=== PATIENT | female | born 1990 | race African-American/Black ===

== ENCOUNTER 2021-03-18 14:28 | Emergency (ER) | payer OTHER ==
[~2021-03-18] VITALS: Ht 175.3 cm; Wt 84.6 kg
[2021-03-18 14:29] VITALS: BP 121/66
[2021-03-18 15:08] LABS: BASO # 0.1 10^3/uL (0.0-0.2); BASO % 0.4 % (0.0-1.0); EOS # 0.1 10^3/uL (0.0-0.5); EOS % 0.5 % (0.0-3.0); HEMATOCRIT 39.5 % (36.0-47.0); HEMOGLOBIN 13.7 g/dl (12.0-15.5); LYMPH # 2.7 10^3/uL (1.5-5.0); LYMPH % 18.1 % (24.0-44.0); MEAN CORPUSCULAR HEMOGLOBIN 29.5 pg (27.0-33.0); MEAN CORPUSCULAR HGB CONC 34.7 g/dl (32.0-36.5); MEAN CORPUSCULAR VOLUME 84.9 fl (80.0-96.0); MONO # 0.9 10^3/uL (0.0-0.8); NEUTROPHILS % 74.3 % (36.0-66.0); PLATELET COUNT, AUTOMATED 282 10^3/uL (150-450); RED BLOOD COUNT 4.65 10^6/uL (4.00-5.40); WHITE BLOOD COUNT 14.8 10^3/uL (4.0-10.0)
[2021-03-18 16:00] LABS: BLOOD UREA NITROGEN 7 MG/DL (7-18); CALCIUM LEVEL 9.2 MG/DL (8.5-10.1); CARBON DIOXIDE LEVEL 26 MEQ/L (21-32); CHLORIDE LEVEL 105 MEQ/L (98-107); CREATININE FOR GFR 0.69 MG/DL (0.55-1.30); GLOMERULAR FILTRATION RATE > 60.0 (>60); GLUCOSE, FASTING 79 MG/DL (70-100); HCG, SERUM QUANTITATIVE 93104 MIU/ML; POTASSIUM SERUM 3.7 MEQ/L (3.5-5.1); SODIUM LEVEL 137 MEQ/L (136-145)
--- NOTE | 2021-03-18 17:20 | REP ---
INDICATION: early preg, bright red bleeding today. COMPARISON: None. TECHNIQUE: Transabdominal obstetric sonography. FINDINGS: Scanning through the gravid uterus demonstrates a single living intrauterine gestation. [place]-rump length of the embryonic pole is 17 mm. This corresponds with an 8 week 1 day gestational age estimate. heart rate is recorded at 176 beats per minute. There is a thin sliver of complex fluid surrounding the anterior portion of the gestational sac consistent with a small subchorionic hemorrhage. There is a 3.7 x 2.8 x 3.5 cm right ovarian cystic area consistent with corpus luteum. There is a hypoechoic solid area in the myometrium measuring 1.4 cm in greatest diameter consistent with a small uterine fibroid. IMPRESSION: Viable single intrauterine gestation at 8 weeks 1 day by crown-rump length. DEIDRA by sonography 27 October 2021. There is a small anterior sub chorionic fluid collection consistent with subchorionic hemorrhage. A small myometrial fibroid is seen. There is a 3.7 cm corpus luteum cyst in the right ovary. <Electronically signed by Donnie Covington > 03/18/21 0066
[2021-03-18] MEDS ORDERED: REGL10TA6 PO (17:33)
== END 2021-03-18 17:46 | disposition home or self-care (01) ==
LOC: M ED 14:28
DX: O20.8 Other hemorrhage in early pregnancy (principal); O34.81 Maternal care for other abnormalities of pelvic organs, first trimester; Z3A.08 8 weeks gestation of pregnancy; Z88.6 Allergy status to analgesic agent

== ENCOUNTER 2021-07-09 20:52 | Outpatient (CLI) | payer OTHER ==
[~2021-07-09] VITALS: Ht 175.3 cm; Wt 90.3 kg
[~2021-07-09 20:52] MED LIST: REGL10TA6 PO
[2021-07-09 21:23] VITALS: BP 133/70
[2021-07-09] MEDS ORDERED: COLA100C5 PO (21:32)
[2021-07-09 22:27] VITALS: BP 129/69
--- NOTE | 2021-07-09 23:13 | IPNPDOC ---
Text Note Date of Service The patient was seen on 07/09/21. NOTE PM Triage visit; history obtained from patient as limited AHLTA access. SGT Riri Andrea is a 30yo at 23 weeks presenting for cramping sharp pelvic pain. This began about 3 weeks ago and has progressively worsened. The pain is bilateral lower abdomen radiating downward. The pain is worsened with movement. She has tried occasional Tylenol for relief which has not worked. Otherwise she feels relatively well and denies vaginal bleeding, loss of fluid, regular contractions. Endorses positive movement. She denies any complications with this . Previous was a term vaginal delivery. MedHx: denies SurgHx: right foot surgery, laparoscopic ovarian de-torsion in 2017 Meds: PNV, colace, reglan, fioricet, B12 Allergies: zofran, NSAIDs - both cause facial swelling VItals reviewed and within normal limits. 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 No signs of active labor, closed cervix on exam. No signs of infection or nefarious abdominal processes. Discussed round ligament pain with patient and mitigation strategies including acetaminophen 975mg every 6 hours by mouth; support belt. 48 hours quarters given. I would expect this condition to improve with time as the ligaments become used to the stretch. She indicated understanding. We reviewed reasons to return to labor and delivery including vaginal bleeding, loss of fluid, regular contractions and decreased movement. León Fernandez DO VS,Nidhi, I+O VS, Nidhi, I+O Vital Signs Date Time Temp Pulse Resp B/P (MAP) Pulse Ox O2 Delivery O2 Flow Rate FiO2 07/09/21 22:27 98.0 74 16 129/69 (89) LEÓN FERNANDEZ DO Jul 09, 2021 23:13
== END 2021-07-09 22:50 | disposition home or self-care (01) ==
LOC: M LDO 20:52
PROVIDERS: ATTEND Obstetrics & Gynecology
DX: O26.892 Other specified pregnancy related conditions, second trimester (principal); R10.2 Pelvic and perineal pain; Z3A.23 23 weeks gestation of pregnancy; Z79.899 Other long term (current) drug therapy; Z88.8 Allergy status to other drugs, medicaments and biological substances
CPT/HCPCS: 59025; G0378; G0463

== ENCOUNTER → 2021-07-31 | Outpatient (CLI) | payer OTHER ==
[~2021-07-31] MED LIST changes: +COLA100C5 PO
--- NOTE | 2021-08-01 06:55 | REP ---
INDICATION: MEASURING LARGE FOR DATES COMPARISON: None. TECHNIQUE: Transabdominal obstetrical ultrasound with color Doppler evaluation. FINDINGS: Examination demonstrates a single live intrauterine in cephalic presentation. motion is identified by technologist. Placenta is noted posterior/fundal and grade 1 without evidence for placenta previa or abruption. Amniotic fluid volume is normal. Cervix measures 4.7 cm in length and appears closed. Two right uterine myomas are identified measuring 1.9 cm and 2.0 cm.. Selected gestational age: 27 weeks 3 days with DEIDRA 10/27/2021. Gestational age by current measurements 28 weeks 5 days with DEIDRA 10/18/2021. FHR equals 145 beats per minute. BPD: 7.2 cm at 29 weeks 0 days HC: 26.7 cm at 29 weeks 1 day AC: 23.1 cm at 27 weeks 3 days FL: 5.4 cm at 28 weeks 5 days HL: 5.0 cm at 29 weeks 1 day HC/AC: 1.16 Estimated weight 1185 grams (61stpercentile). RUPERT: 15.0 cm Umbilical artery SD ratio: 3.00 Anatomical assessment demonstrates normal structures including cranium, cavum, cerebellum/posterior fossa, facial features, lungs, four-chamber heart, diaphragm, stomach, cord insertion/three-vessel cord, kidneys/bladder, spine, and extremities. IMPRESSION: 1. Single live intrauterine in cephalic presentation demonstrating appropriate interval growth. 2. Limited anatomical assessment without obvious abnormality. 3. Myomatous changes to the uterus. <Electronically signed by Leno Coats > 08/01/21 0651
== END ==
LOC: M RAD 14:34
PROVIDERS: ATTEND Nurse Practitioner Women's Health
DX: Z36.2 Encounter for other antenatal screening follow-up (principal); Z3A.29 29 weeks gestation of pregnancy; D25.9 Leiomyoma of uterus, unspecified; O34.13 Maternal care for benign tumor of corpus uteri, third trimester

== ENCOUNTER 2021-09-17 14:17 | Outpatient (CLI) | payer OTHER ==
[~2021-09-17] VITALS: Ht 175.3 cm; Wt 96.7 kg
[2021-09-17 14:39] VITALS: BP 121/63
[2021-09-17] MEDS ORDERED: PRENTAB9 PO (14:40)
--- NOTE | 2021-09-17 16:06 | IPNPDOC ---
Text Note Date of Service The patient was seen on 09/17/21. NOTE 09/17/2021 PATIENT IS 30 Y.O. LMP 01/25/21 EDC BY EARLY US 8.6 WEEKS EDC 11/01/21 COMPLAINS OF ABDOMINAL PAIN AT WORK . NO VAGINAL LOSS NO BLEEDING . RISK FACTORS FIBROID UTERUS WORK STRESS SICKLE CELL TRAIT ASSESSMENT DOES NOT APPEAR IN DISTRESS SF HEIGHT 32 CM VERTEX BOWEL SOUNDS NORMAL NON TENDER UTERUS CATEGORY 1 STRIP . REVIEWED WITH PATIENT INCREASE MOVEMENT WILL GIVE HER ABDOMINAL PAIN . REVIEWED WHAT SHE DOES AT WORK. HER UNIT DEPLOYED SHE SITS AT WORK WITH NO WORK . DOES NOT NEED PROFILE CHANGE. US CONSENTED VERTEX LIMB MOVEMENT NOTED SPONTANEOUS BREATHING RUPERT MVP 7.17 CM . DISCHARGED UNDELIVERED PLAN MAINTAIN CENTERING APPOINTMENT VSNdihi, I+O VSNidhi I+O Vital Signs Date Time Temp Pulse Resp B/P (MAP) Pulse Ox O2 Delivery O2 Flow Rate FiO2 09/17/21 14:39 98.6 104 18 121/63 (82) 99 Room Air Raymon Alba MD Sep 17, 2021 16:06
== END 2021-09-17 15:45 | disposition home or self-care (01) ==
LOC: M LDO 14:17
PROVIDERS: ATTEND Obstetrics & Gynecology
DX: O26.893 Other specified pregnancy related conditions, third trimester (principal); R10.84 Generalized abdominal pain; Z3A.00 Weeks of gestation of pregnancy not specified
CPT/HCPCS: 59025; 76815; G0378; G0463

== ENCOUNTER 2021-09-20 10:24 | Emergency (ER) | payer OTHER ==
[~2021-09-20] VITALS: Ht 175.3 cm; Wt 96.9 kg
[~2021-09-20 10:24] MED LIST changes: +PRENTAB9 PO
--- OUTSIDE RECORDS SUMMARY | 2021-09-20 10:30 | CCD ---
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 Name Role Phone Conor Suarez MD Unavailable Unavailable Conor Suarez MD Unavailable Unavailable Conor Suarez MD Unavailable Unavailable Conor Suarez MD Unavailable Unavailable Conor Suarez MD Unavailable Unavailable Conor Suarez MD Unavailable Unavailable Conor Suarez MD Unavailable Unavailable Conor Suarez MD Unavailable Unavailable Conor Suarez MD Unavailable Unavailable Conor Suarez MD Unavailable Unavailable Conor Suarez MD Unavailable Unavailable Conor Suarez MD Unavailable Unavailable Conor Suarez MD Unavailable Unavailable Conor Suarez MD Unavailable Unavailable Conor Suarez MD Unavailable Unavailable Conor Suarez MD Unavailable Unavailable Conor Suarez MD Unavailable Unavailable Conor Suarez MD Unavailable Unavailable Conor Suarez MD Unavailable Unavailable Conor Suarez MD Unavailable Unavailable Conor Suarez MD Unavailable Unavailable Conor Suarez MD Unavailable Unavailable Conor Suarez MD Unavailable Unavailable Conor Suarez MD Unavailable Unavailable Conor Suarez MD Unavailable Unavailable Conor Suarez MD Unavailable Unavailable Conor Suarez MD Unavailable Unavailable Conor Suarez MD Unavailable Unavailable Conor Suarez MD Unavailable Unavailable Conor Suarez MD Unavailable Unavailable Conor Suarez MD Unavailable Unavailable Conor Suarez MD Unavailable Unavailable Conor Suarez MD Unavailable Unavailable Conor Suarez MD Unavailable Unavailable Conor Suarez MD Unavailable Unavailable Conor Suarez MD Unavailable Unavailable Conor Suarez MD Unavailable Unavailable Conor Suarez MD Unavailable Unavailable Conor Suarez MD Unavailable Unavailable Conor Suarez MD Unavailable Unavailable Suarez, Conor Morales MD Unavailable Unavailable Suarez, Conor Morales MD Unavailable Unavailable Suarez, Conor Morales MD Unavailable Unavailable Suarez, Conor Morales MD Unavailable Unavailable Suarez, Conor Morales MD Unavailable Unavailable Suarez, Conor Morales MD Unavailable Unavailable Suarez, Conor Morales MD Unavailable Unavailable Suarez, Conor Morales MD Unavailable Unavailable Suarez, Conor Morales MD Unavailable Unavailable Suarez, Conor Morales MD Unavailable Unavailable Suarez, Conor Morales MD Unavailable Unavailable Suarez, Conor Morales MD Unavailable Unavailable Suarez, Conor Morales MD Unavailable Unavailable Suarez, Conor Morales MD Unavailable Unavailable Suarez, Conor Morales MD Unavailable Unavailable Suarez, Conor Morales MD Unavailable Unavailable Suarez, Conor Morales MD Unavailable Unavailable Suarez, Conor Morales MD Unavailable Unavailable Suraez, Conor Morales MD Unavailable Unavailable Suarez, Conor Morales MD Unavailable Unavailable Suarez, Conor Morales MD Unavailable Unavailable Suarez, Conor Morales MD Unavailable Unavailable Suarez, Conor Morales MD Unavailable Unavailable Suarez, Conor Morales MD Unavailable Unavailable Suarez, Conor Morales MD Unavailable Unavailable Suarez, Conor Morales MD Unavailable Unavailable Suarez, Conor Morales MD Unavailable Unavailable Suarez, Conor Morales MD Unavailable Unavailable Suarez, Conor Morales MD Unavailable Unavailable Suarez, Conor Morales MD Unavailable Unavailable Suarez, Conor Morales MD Unavailable Unavailable Suarez, Conor Morales MD Unavailable Unavailable Suarez, Conor Morales MD Unavailable Unavailable Suarez, Conor Morales MD Unavailable Unavailable Suarez, Conor Morales MD Unavailable Unavailable Suarez, Conor Morales MD Unavailable Unavailable Suarez, Conor Morales MD Unavailable Unavailable Suarez, Conor Morales MD Unavailable Unavailable Suarez, Conor Morales MD Unavailable Unavailable Suarez, Conor Morales MD Unavailable Unavailable Suarez, Conor Morales MD Unavailable Unavailable Suarez, Conor Morales MD Unavailable Unavailable Suarez, Conor Morales MD Unavailable Unavailable Suarez, Conor Morales MD Unavailable Unavailable Suarez, Conor Morales MD Unavailable Unavailable Suarez, Conor Morales MD Unavailable Unavailable Suarez, Conor Morales MD Unavailable Unavailable Suarez, Conor Morales MD Unavailable Unavailable Suarez, Conor Morales MD Unavailable Unavailable Suarez, Conor Morales MD Unavailable Unavailable Suarez, Conor Morales MD Unavailable Unavailable Suarez, Conor Morales MD Unavailable Unavailable Suarez, Conor Morales MD Unavailable Unavailable Jc PEARL Unavailable Unavailable MELÉNDEZ, [facility] Unavailable Unavailable Re-disclosure Warning The records that you are about to access may contain information from federally-assisted alcohol or drug abuse programs. If such information is present, then the following federally mandated warning applies: This information has been disclosed to you from records protected by federal confidentiality rules (42 CFR part 2). The federal rules prohibit you from making any further disclosure of this information unless further disclosure is expressly permitted by the written consent of the person to whom it pertains or as otherwise permitted by 42 CFR part 2. A general authorization for the release of medical or other information is NOT sufficient for this purpose. The Federal rules restrict any use of the information to criminally investigate or prosecute any alcohol or drug abuse patient.The records that you are about to access may contain highly sensitive health information, the redisclosure of which is protected by Article 27-F of the [facility] Public Health law. If you continue you may have access to information: Regarding HIV / AIDS; Provided by facilities licensed or operated by the [facility] Office of Mental Health; or Provided by the [facility] Office for People With Developmental Disabilities. If such information is present, then the following [facility] mandated warning applies: This information has been disclosed to you from confidential records which are protected by state law. State law prohibits you from making any further disclosure of this information without the specific written consent of the person to whom it pertains, or as otherwise permitted by law. Any unauthorized further disclosure in violation of state law may result in a fine or mcc sentence or both. A general authorization for the release of medical or other information is NOT sufficient authorization for further disc losure. Allergies and Adverse Reactions Type Description Substance Reaction Status Data Source(s ) No Known Environmental Allergies No Known Environmental Al lergies [facility] No Known Food Allergies No Known Food Allergies [facility] Propensity to adverse reactions ZOFRAN ZOFRAN SWELLING [facility] Propensity to adverse reactions NSAID NSAID SWELLING [facility] Allergy to substance Allergy to substance Allergy to substance [place] ([facility]) Encounters Encounter Providers Location Date Indications Data Source(s ) Outpatient Attender: ABRAM PEARLConsultant: CLINIC AMARILYSI Neftali 01/29/2021 06:15:00 AM EDT - 01/29/2021 12:14:00 PM EDT [facility] Patient discharged. Outpatient Attender: ABRAM PEARL 01/28/20 08:01:40 AM EDT - 01/28/2021 09:56:00 AM T [facility] Patient discharged. Andrew Suarez MD: [address] [place] [address] [phone], Ph. Attender: Andrew Suarez MD [place] - [facility] Medical 11/12/2020 12:00:00 AM EST [place] ([facility]) Medications No Information Insurance Providers Payer name Policy type / Coverage type Policy ID Covered republican ID Covered republican's relationship to schroeder Policy Schroeder Plan Information [facility] ACTIVE DUTY [id number] SP [id number] [facility] HUMANA - O/P [id number] 18 [id number] Problems, Conditions, and Diagnoses Code Display Name Description Problem Type Effective Dates Data Source(s) S04388 Other synovitis and tenosynovitis, right ankle and foot Other synovitis and tenosynovitis, right ankle and foot Diagnosis 01/29/2021 06:15:00 AM EDT [facility] [id number] Loose body in right ankle Loose body in right ankle Di agnosis 01/29/2021 06:15:00 AM EDT [facility] [id number] Other instability, right ankle Other instability, righ t ankle Diagnosis 01/29/2021 06:15:00 AM EDT [facility] [id number] Pain in right ankle and joints of right foot Pain in right ankle and joints of right foot Diagnosis 01/29/2021 06:15:[address] [facility] [id number] Encounter for other preprocedural examin ation Encounter for other preprocedural examination Diagnosis 01/28/2021 09:22:00 AM EDT [facility] Surgeries/Procedures No Information Results ID Date Data Source [id number] 01/29/2021 06:41:00 AM EDT [facility] Name Value Range Interpretation Code Description Data Sho rce(s) Supporting Document(s) HCG URINE QUAL NEGATIVE NORMAL: NEGATIVE [facility] HCG URINE QL REENTER NEGATIVE NORMAL: NEGATIVE [facility] { KIT LOT # [id number] ){ KIT EXP DATE 07.31.22 ){ PROCEDURAL CONTROL VALID ) ID Date Data Source [id number] 11/12/2020 10:22:00 AM EST [facility] ([facility]) Name Value Range Interpretation Code Description Data Sho rce(s) Supporting Document(s) sars-cov-2 negative negative Sars-cov-2 [facility]) ID Date Data Source [id number] 11/12/2020 10:17:00 AM EST [facility] Name Value Range Interpretation Code Description Data Sho rce(s) Supporting Document(s) SARS coronavirus 2 RdRp gene [Presence] in Respiratory specimen by ROLY with probe detection Not detected [facility] This lab was ordered by [facility] and reported by [facility]. Procedure Social History No Information Vital Signs ID Date Data Source [id number] 02/13/2021 12:44:59 PM EDT [facility] Name Value Range Interpretation Code Description Data Source(s) WEIGHT RECORDED 185.00 pounds 185.00 pounds Car [facility] Height 69 Inches 069 Inches [facility]
--- OUTSIDE RECORDS SUMMARY | 2021-09-20 12:16 | CCD ---
Author Author [facility] Organization [facility] Address Unknown Phone Unavailable Care Team Providers Care Fuel Technician Name Role Phone Conor Suarez MD Unavailable [...] MD Unavailable Unavailable Jc PEARL Unavailable Unavailable [facility] Unavailable Unavailable Re-disclosure Warning The records [...] is protected by Article 27-F of the [facility] Public Health law. If you continue you may have access to information: Regarding HIV / AIDS; Provided by facilities licensed or operated by the [facility] Office of Mental Health; or Provided by the [facility] Office for People With Developmental Disabilities. If such information is present, then the following [facility] mandated warning applies: This information has been [...] law may result in a fine or intermediate sentence or both. A general authorization for the release of medical or other information is NOT sufficient authorization for further disc losure. Allergies and Adverse Reactions Type Description Substance Reaction Status Data Source(s ) No Known Environmental Allergies No Known Environmental Al lergies [facility] No Known Food Allergies No Known Food Allergies [facility] Propensity to adverse reactions ZOFRAN ZOFRAN SWELLING [facility] Propensity to adverse reactions NSAID NSAID SWELLING [facility] Allergy to substance Allergy to substance Allergy to substance [place] ([facility]) Encounters Encounter Providers Location Date Indications Data Source(s ) Outpatient Attender: ABRAM PEARLConsultant: CLINIC GUTHRI E 01/29/2021 06:15:00 AM EDT - 01/29/2021 12:14:00 PM EDT [facility] Patient discharged. Outpatient Attender: ABRAM PEARL 01/28/20 08:01:40 AM EDT - 01/28/2021 09:56:00 AM EDT [facility] Patient discharged. Andrew Suarez MD: [address] [place] [address] [phone], Ph. Attender: Andrew Suarez MD [facility] Medical 11/12/2020 12:00:00 AM MATTIE VILLANUEVA ([facility]) Medications No Information Insurance Providers Payer name Policy type / Coverage type Policy ID Covered alliance party ID Covered alliance party's relationship to schroeder Policy Schroeder Plan Information [facility] ACTIVE DUTY [id number] SP [id number] [facility] HUMANA - O/P [id number] 18 [id number] Problems, Conditions, and Diagnoses Code Display Name Description Problem Type Effective Dates Data Source(s) B31482 Other synovitis and tenosynovitis, right ankle and foot Other synovitis and tenosynovitis, right ankle and foot Diagnosis 01/29/2021 06:15:00 AM EDT [facility] [id number] Loose body in right ankle Loose body in right ankle Di agnosis 01/29/2021 06:15:00 AM EDT [facility] [id number] Other instability, right ankle Other instability, righ t ankle Diagnosis 01/29/2021 06:15:00 AM EDT [facility] [id number] Pain in right ankle and joints of right foot Pain in right ankle and joints of right foot Diagnosis 01/29/2021 06:15:00 AM EDT [facility] [id number] Encounter for other preprocedural examin ation Encounter for other preprocedural examination Diagnosis 01/28/2021 09:22:00 AM EDT [facility] Surgeries/Procedures No Information Results ID Date Data Source [id number] 01/29/2021 06:41:00 AM EDT [facility] Name Value Range Interpretation Code Description Data Sho rce(s) Supporting Document(s) HCG URINE QUAL NEGATIVE NORMAL: NEGATIVE [facility] HCG URINE QL REENTER NEGATIVE NORMAL: NEGATIVE [facility] { KIT LOT # [id number] ){ KIT EXP DATE 07.31.22 ){ PROCEDURAL CONTROL VALID ) ID Date Data Source [id number] 11/12/2020 10:22:00 AM MATTIE VILLANUEVA ([facility]) Name Value Range Interpretation Code Description Data Sho rce(s) Supporting Document(s) sars-cov-2 negative negative Sars-cov-2 [facility] ([facility]) ID Date Data Source [id number] 11/12/2020 10:17:00 AM EST [facility] Name Value Range Interpretation Code Description Data Sho rce(s) Supporting Document(s) SARS coronavirus 2 RdRp gene [Presence] in Respiratory specimen by ROLY with probe detection Not detected [facility] This lab was ordered by [facility] and reported by [facility]. Procedure Social History No Information Vital Signs ID Date Data Source [id number] 02/13/2021 12:44:59 PM EDT [facility] Name Value Range Interpretation Code Description Data Source(s) WEIGHT RECORDED 185.00 pounds 185.00 pounds Car [facility] Height 69 Inches 069 Inches [facility]
[2021-09-20 13:04] VITALS: BP 126/59
--- NOTE | 2021-09-20 13:16 | REP ---
INDICATION: assess FHR, unable to obtain at bedside COMPARISON: 07/31/2021 TECHNIQUE: Transabdominal obstetrical ultrasound with color Doppler evaluation. FINDINGS: Examination demonstrates a single live intrauterine in cephalic presentation. motion is identified by technologist. Placenta is noted posterior and grade 1 without evidence for placenta previa or abruption. Amniotic fluid volume is normal. Cervix measures 3.5 cm in length and appears closed. Evidence for nuchal cord. Selected gestational age: 34 weeks 5 days with DEIDRA 10/27/2021. FHR equals 139 beats per minute. RUPERT: 7.4 cm (8.0-24.9) Umbilical artery SD ratio: 1.89 (1.70-3.62) Biophysical profile score: 8/8 IMPRESSION: Single live intrauterine in cephalic presentation. Biophysical profile score: 8/8. Amniotic fluid volume is minimally low normal range. Nuchal cord. <Electronically signed by Leno Coats > 09/20/21 [id number]
--- NOTE | 2021-09-21 07:32 | ED PDOC ---
Post-Departure Follow-Up radiology repor tfaxed to [facility] and Ruth Jacobsen MD Sep 21, 2021 07:32
== END 2021-09-20 13:05 | disposition home or self-care (01) ==
LOC: M ED 10:24
DX: S60.445A External constriction of left ring finger, initial encounter (principal); W49.04XA Ring or other jewelry causing external constriction, initial encounter; Y92.9 Unspecified place or not applicable; Y93.9 Activity, unspecified; Y99.9 Unspecified external cause status; Z3A.34 34 weeks gestation of pregnancy; Z79.899 Other long term (current) drug therapy; Z88.6 Allergy status to analgesic agent; Z88.8 Allergy status to other drugs, medicaments and biological substances

== ENCOUNTER 2021-10-06 15:56 | Outpatient (CLI) | payer OTHER ==
[~2021-10-06] VITALS: Ht 175.3 cm; Wt 97.7 kg
[2021-10-06 16:21] VITALS: BP 127/76
[2021-10-06] MEDS ORDERED: UNIS25TA5 PO (16:26)
[2021-10-06] MEDS ORDERED: HOME MED LIST COMPLETE! XX SCH (16:30)
== END 2021-10-06 17:48 | disposition home or self-care (01) ==
LOC: M LDO 15:56
PROVIDERS: ATTEND Obstetrics & Gynecology
DX: O60.03 Preterm labor without delivery, third trimester (principal); O26.893 Other specified pregnancy related conditions, third trimester; R25.2 Cramp and spasm; Z3A.36 36 weeks gestation of pregnancy
CPT/HCPCS: 59025; G0378; G0463

== ENCOUNTER 2021-10-22 08:56 | Outpatient (CLI) | payer OTHER ==
[~2021-10-22] VITALS: Ht 175.3 cm; Wt 96.5 kg
[~2021-10-22 08:56] MED LIST changes: +UNIS25TA5 PO
[2021-10-22 09:16] VITALS: BP 113/64
[2021-10-22] MEDS ORDERED: PYRI25TA2 PO (09:19)
[2021-10-22] MEDS ORDERED: HOME MED LIST COMPLETE! XX SCH (09:20)
[2021-10-22 09:51] VITALS: BP 118/75
--- NOTE | 2021-10-22 11:27 | IPNPDOC ---
Obstetrical Progress Note Date of Service Oct 22, 2021 Subjective Pt states feeling and increase in contractions since membrane sweep in clinic one day prior with loss of mucous plug. Denies bleeding, LOF, states reassuring FM. Objective Vital Signs Date Time Temp Pulse Resp B/P (MAP) Pulse Ox O2 Delivery O2 Flow Rate FiO2 10/22/21 09:51 90 18 118/75 (89) 10/22/21 09:16 98.0 99 Room Air Assessment Heart Rate (FHR): 135 Variability: Moderate Accelerations: Positive Heart Rate Tracing: Category I Tocometer Contractions: Yes Frequency: irregular Duration: greater than 60 seconds Strength: palpated as mild, resting tone palp/soft Sterile Vaginal Examination Dilation: 2cm Effacement (%): 50% Station: -3 Cervical Consistency: Soft Cervical Position: Posterior Postion/Presentation: Cephalic presentation Assessment and Plan Age: 30 : 2 Term: 1 Pre-term: 0 Abortions: 0 Livin EGA at Admission: 38 (+3) Status: Reassuring Group B Streptococcus: Positive Additional Comments Discharge to home with labor precautions. Keep scheduled 39wk OB. kick counts states understanding of reasons to return for care WSET HENDRICKS CNM Oct 22, 2021 11:27
== END 2021-10-22 10:05 | disposition home or self-care (01) ==
LOC: M LDO 08:56
PROVIDERS: ATTEND Registered Nurse
DX: O60.03 Preterm labor without delivery, third trimester (principal); Z3A.38 38 weeks gestation of pregnancy
CPT/HCPCS: 59025; G0378; G0463

== ENCOUNTER 2021-10-25 11:57 | Inpatient (IN) | payer OTHER ==
[~2021-10-25] VITALS: Ht 175.3 cm; Wt 96.7 kg
[2021-10-25] VITALS (20 sets, daily range): BP systolic 93–135; BP diastolic 52–77
[~2021-10-25 11:57] MED LIST changes: +PYRI25TA2 PO
[2021-10-25] MEDS ORDERED: ACET325C5 PO (13:19)
[2021-10-25] MEDS ORDERED: HOME MED LIST COMPLETE! XX SCH (13:20)
[2021-10-25] MEDS ORDERED: PENICILLIN G POTASSIUM IV 5 MU in D5W MINI-BAG PLUS 100 ML IV STA (13:29)
[2021-10-25] MEDS ORDERED: OXYTOCIN DRIP 30 UNITS in IV 1 EA IV SCH (13:30)
[2021-10-25] MEDS ORDERED: OXYTOCIN DRIP 30 UNITS in IV 1 EA IV PRN ×4 (13:30)
--- NOTE | 2021-10-25 13:55 | HPEPDOC ---
Obstetrical History & Physical General Date of Admission Oct 25, 2021 at 13:28 History of Present Illness Riri Andrea is a 31yo at 39+0 weeks by LMP c/w 1T ultrasound pres enting for SROM check, reports leakage of clear fluid for at least 24 hours; not sure when specifically. Denies vaginal bleeding. Endorses contractions every 10 minutes and positive movement. 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 History: No pertinent history Past Medical History Medical History migraines with aura Surgical History: Other (ankle and knee surgery) Family History Family History Mother: hypertension, diabetes Social History Marital Status: Family situation: Spouse/partner home Psychosocial History: No pertinent psych hx * Smoker: non-smoker Alcohol: Denies Drugs: denies Abuse Violence Screening Have you been hit/kicked/slapp: No Have you been sexually assault: No Imunizations Tdap status: declined Influenza Status: needs Allergies Coded Allergies: NSAIDS (Non-Steroidal Anti-Inflamma (Verified Allergy, Intermediate, facial swelling, 03/18/21) ondansetron (Verified Allergy, Intermediate, facial swelling, 03/18/21) Medications Scheduled Docusate Sodium (Colace) 100 Mg Capsule, 1 CAP PO BID Doxylamine Succinate (Unisom) 25 Mg Tablet, 12.5 MG PO BID No.137/Iron/Folic Acd ( Vitamin Tablet) 1 Each Tablet, 1 TAB PO DAILY Pyridoxine HCl (Vitamin B6) (Vitamin B-6) 25 Mg Tablet, 25 MG PO TID Miscellaneous Medications Acetaminophen (Tylenol) 325 Mg Capsule, 1,000 MG PO Physical Examination Physical Examination GENERAL: Alert and oriented times three. ABDOMEN: Gravid and non-tender to touch. FETUS: Is vertex by ultrasound; efw 3400 by palpation HEART RATE: Regular rate LUNGS: nonlabored breathing EXTREMITIES: No edema. Pertinent Laboratoy Data Blood Type: O+ RBC Antibody Screen: Negative HIV: Negative Hepatitis B: Negative Rapid Plasma Reagin: Nonreactive Rubella: Immune Varicella: Immune Chlamydia/Gonorrhea: Negative Group B Streptococcus: Positive Glucose Tolerance Test: 123 Anatomy Ultrasound Placenta Location: Posterior Normal Anatomy: Yes Placenta Previa: No Other Ultrasounds 28 week growth scan 1185g (61%) Steroid Therapy Steroid Therapy: No Vaginal Examination Dilation: 2cm Effacement: 50% Station: -3 Cervical Consistency: Soft Cervical Position: Posterior Presentation: Cephalic presentation Assessment Heart Rate (FHR): 140 Variability: Moderate Accelerations: Positive Decelerations: None Tocometer Contractions: Yes Frequency: greater than 9 min/apart Multi-drug resistant Organism: No history of MDRO Assessment/Plan Assessment Riri Andrea is a 31yo at 39+0 by LMP c/w 1T ultrasound admitted for PROM based on positive pooling and ferning. Cervix 2/50/-3. GBS positive. EFW 3400g. During interview patient stated that she thinks her prior was complicated by shoulder dystocia. I discussed that while there are no predictors for shoulder dystocia, a history of shoulder dystocia is a risk factor for recurrence. I did offer delivery which she declined and this is reasonable. Plan Admit and orient. 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 Diet: clear liquid Group B Streptococcus (GBS) positive. Labs and intravenous (IV) per unit protocol. Counseled on Pitocin and induction of labor (IOL). Lactated Ringers (LR): 125 mL/hr. Anticipate spontaneous vaginal delivery C-S as appropriate. Labor and Delivery Counseling Counseled on risks of vaginal delivery including but not limited to bleeding, infection, hysterectomy, blood transfusion, injury to baby, shoulder dystocia, forceps and vacuum delivery. Counseled on use of pitocin and risks of uterine hyperstimulation. Counseled on risk of delivery for or maternal indications. She indicated understanding and all questions were answered. LEÓN FELIX DO Oct 25, 2021 13:55
[2021-10-25 14:19] LABS: HEMATOCRIT 34.7 % (36.0-47.0); MEAN CORPUSCULAR HEMOGLOBIN 29.5 pg (27.0-33.0); MEAN CORPUSCULAR HGB CONC 34.6 g/dl (32.0-36.5); MEAN CORPUSCULAR VOLUME 85.3 fl (80.0-96.0); PLATELET COUNT, AUTOMATED 233 10^3/uL (150-450); RED BLOOD COUNT 4.07 10^6/uL (4.00-5.40); WHITE BLOOD COUNT 10.7 10^3/uL (4.0-10.0)
[2021-10-25] MEDS: LR 1,000 ML IV SCH ×2 (14:22→21:30)
[2021-10-25] MEDS: PENICILLIN G POTASSIUM IV 2.5 MU in IV 1 EA IV SCH ×2 (18:40→22:23)
[2021-10-25] MEDS ORDERED: BUTORPHANOL 2 MG/ML INJ (J0595) IV ONE (22:00)
[2021-10-25] MEDS ORDERED: PROMETHAZINE INJ 25 MG/ML VIAL (J2550) IV ONE (22:00)
--- NOTE | 2021-10-25 22:05 | IPNPDOC ---
Obstetrical Progress Note Date of Service Oct 25, 2021 Liang Menezes is beginning to feel pain with her contractions, is considering pain relief. Otherwise no complaints. Objective Vital Signs Date Time Temp Pulse Resp B/P (MAP) Pulse Ox O2 Delivery O2 Flow Rate FiO2 10/25/21 18:45 97.7 100 18 122/72 (89) Assessment Heart Rate (FHR): 130 Variability: Moderate Accelerations: Positive Decelerations: None Heart Rate Tracing: Category I Tocometer Contractions: Yes Frequency: regular, every 2-5 min. Sterile Vaginal Examination Dilation: 2cm Effacement (%): 50% Station: -3 Cervical Consistency: Soft Cervical Position: Middle Postion/Presentation: Cephalic presentation Assessment and Plan Age: 31 : 2 Term: 1 Pre-term: 0 Abortions: 0 Livin Weeks & Days 39+0 Status: Reassuring Group B Streptococcus: Positive Anticipate: Vaginal Delivery Additional Comments Cervical exam dilation unchanged however now midposition, has only been on pitocin for about 3 hours. Afebrile, no uterine tenderness. We had previously discussed pain control options and she is requesting IV pain medications. She is aware that this causes heart rate tracing abnormalities and can cause respiratory depression of the at . -stadol 2mg IV -phenergan 12.5mg IV -continue pitocin -routine intrapartum care LEÓN FELIX DO Oct 25, 2021 22:05
[2021-10-26] VITALS (56 sets, daily range): BP systolic 81–160; BP diastolic 50–83
--- NOTE | 2021-10-26 00:23 | IPNPDOC ---
Text Note Date of Service The patient was seen on 10/26/21. NOTE Paged by nursing to evaluate for 90s/50s blood pressure. Patient has received 2mg stadol and 12.mg phenergan for labor pain control. Patient was sleeping on entry into room and was arousable. Stated that she no longer felt her contractions. After 250cc bolus of fluids, BP 110s/60s. heart rate tracing category I with contractions every 2-3 minutes. -continue routine intrapartum care León Fernandez DO VS,Nidhi, I+O VS, Pinedae, I+O Laboratory Tests 10/25/21 13:50 Vital Signs Date Time Temp Pulse Resp B/P (MAP) Pulse Ox O2 Delivery O2 Flow Rate FiO2 10/25/21 22:13 18 10/25/21 18:45 97.7 100 122/72 (89) LEÓN FERNANDEZ DO Oct 26, 2021 00:23
[2021-10-26] MEDS: PENICILLIN G POTASSIUM IV 2.5 MU in IV 1 EA IV SCH ×3 (02:28→10:04)
[2021-10-26] MEDS ORDERED: FENTANYL 2MCG/ML ROPIVACAINE 0.2% IN 0.9% NACL 100ML IVBAG As Ordered ONE (03:04)
[2021-10-26] MEDS ORDERED: EPIDURAL COMMENT XX SCH (03:40)
[2021-10-26] MEDS ORDERED: EPIDURAL/PCA KEYS XX PRN (03:40)
[2021-10-26] MEDS ORDERED: ePHEDrine SULFATE 25 MG/5 ML(5MG/ML) SYRINGE IV PRN (03:40)
[2021-10-26] MEDS ORDERED: LACTATED RINGER'S 1000 ML IV PRN (03:40)
[2021-10-26] MEDS ORDERED: REFRIGERATOR IV KEYS XX PRN (03:40)
[2021-10-26] MEDS ORDERED: diphenhydrAMINE 50MG/ML VIAL (J1200) IV PRN (03:40)
[2021-10-26] MEDS ORDERED: ONDANSETRON 4MG/2ML VIAL IV PRN ×2 (03:40→12:15)
[2021-10-26] MEDS ORDERED: NALOXONE INJ 0.4MG/1ML VIAL (J2310 PER 1MG) IV PRN (03:40)
[2021-10-26] MEDS ORDERED: FENTANYL/ROPIVACAINE/NACL BAG 100 ML EPIDURAL SCH (03:40)
[2021-10-26] MEDS ORDERED: ePHEDrine SULFATE 25 MG/5 ML(5MG/ML) SYRINGE As Ordered ONE (04:02)
[2021-10-26] MEDS: LR 1,000 ML IV SCH ×4 (05:30→20:15)
--- NOTE | 2021-10-26 06:24 | IPNPDOC ---
Obstetrical Progress Note Date of Service Oct 26, 2021 Subjective Riri Andrea is comfortable with her epidural and has no complaints at this time. Objective Vital Signs Date Time Temp Pulse Resp B/P (MAP) Pulse Ox O2 Delivery O2 Flow Rate FiO2 10/26/21 05:55 96 103/57 (72) 10/26/21 04:54 97.5 17 Assessment Heart Rate (FHR): 140 Variability: Moderate Accelerations: Positive Decelerations: Early, Late (rare) Heart Rate Tracing: Category II Tocometer Contractions: Yes Frequency: every 2-5 min. Sterile Vaginal Examination Dilation: 6 cm Effacement (%): 70% Station: -1 Cervical Consistency: Soft Cervical Position: Anterior Postion/Presentation: Cephalic presentation Assessment and Plan Age: 31 : 2 Term: 1 Pre-term: 0 Abortions: 0 Livin Weeks & Days 39+1 Status: Reassuring Group B Streptococcus: Positive Anticipate: Vaginal Delivery Additional Comments Progressing in labor, now 6/70/-1 blood pressure was 90s/50s/ ordered fluid bolus, pit was at 18, reduce now to 10 for resuscitative measures continue intrapartum care reevaluate labor in 2-4 hours or as needed DO ELVIRA Reynaga BRADLEY J. DO Oct 26, 2021 06:20
--- NOTE | 2021-10-26 10:07 | IPNPDOC ---
Text Note Date of Service The patient was seen on 10/26/21. NOTE While I was pushing with another patient the tracing was not picking up so the nurse placed an FSE and cervical exam 8cm, adequate progress. FHR 145,moderate variability, early decels. She did have variables earlier in labor. As she reported a vague history of perhaps a shoulder in her previous delivery I have discussed with her nurse our maneuvers and plan in case of a shoulder dystocia. -continue intrapartum care, anticipate vaginal delivery VS,Andreybone, I+O VS, Fishbone, I+O Laboratory Tests 10/25/21 13:50 Vital Signs Date Time Temp Pulse Resp B/P (MAP) Pulse Ox O2 Delivery O2 Flow Rate FiO2 10/26/21 09:55 106 18 121/67 (85) 10/26/21 09:24 98.8 LEÓN FELIX DO Oct 26, 2021 10:07
[2021-10-26 11:20] LABS: CORD GAS ABE A -5.2; CORD GAS ABE V -3.7; CORD GAS HCO3 A 25.1 MEQ/L; CORD GAS HCO3 V 21.4 MEQ/L; CORD GAS O2 SAT A 24.4 %; CORD GAS O2 SAT V 89.6 %; CORD GAS PCO2 A 72.2 mmHg; CORD GAS PH A 7.159 UNITS; CORD GAS PH V 7.357 UNITS; CORD GAS PO2 A 15.6 mmHg; CORD GAS PO2 V 44.7 mmHg; CORD GAS SBC A 18.7 MEQ/L; CORD GAS SBC V 21.2 MEQ/L; CORD GAS TCO2 A 27.3 MEQ/L; CORD GAS TCO2 V 22.6 MEQ/L
[2021-10-26] MEDS ORDERED: MEASLES,MUMPS,RUBELLA VACCINE INJ (MMR-II) (90707) SC SCH (12:15)
[2021-10-26] MEDS ORDERED: RHOGAM 300 MCG (1500 IU) INJ (J2790) IM SCH (12:15)
[2021-10-26] MEDS ORDERED: DIBUCAINE 1% OINTMENT 30GM TOP PRN (12:15)
[2021-10-26] MEDS ORDERED: PROMETHAZINE 25 MG TAB PO PRN (12:15)
[2021-10-26] MEDS ORDERED: DOCUSATE SODIUM 100MG CAPSULE PO PRN (12:15)
--- NOTE | 2021-10-26 12:38 | DNPDOC ---
[facility] Delivery Note Delivery Note DATE OF DELIVERY: 26OCT2021 PREDELIVERY DIAGNOSIS: 39+1 weeks' gestation and ruptured membranes. POST DELIVERY DIAGNOSIS: Delivered. PROCEDURE: Spontaneous vaginal delivery BAKED AND GRAPHITE INSPECTOR: Abhishek Fernandez DO ANESTHESIA: epidural ESTIMATED BLOOD LOSS: 300 mL. FINDINGS: 3890g infant, Score 7/9, loose nuchal cord times 3 reduced manually. DELIVERY SUMMARY: I had entered the room for a cervical exam and found the patient to be completely dilated and zero station. tracing was category I. She performed a test push with good descent so preparations were made for delivery. Over the next several contractions the head delivered. Loose nuchal cord was palpated and reduced x3. Then the anterior shoulder delivered without issue followed by the corpus. The was placed on the maternal abdomen. Good cry was noted. The cord was clamped and cut. I was notified that I was needed in another room. I verified hemostasis and patient stability then informed Riri that I would return later to deliver the placenta. After delivering another baby in a different room I returned and with gentle cord traction delivered the intact placenta. Bimanual uterine massage until fundus and lower uterine segment firm. Pitocin bolused. Inspection of the perineum revealed a second degree midline laceration which was repaired with several [id number] sutures of 0-vicryl. Hemostasis was noted. Mother and baby were in good condition and noted to be appropriately bonding when I left the room. All counts were correct. DO ELVIRA Reynaga BRADLEY J. DO Oct 26, 2021 12:38
[2021-10-26] MEDS: ACETAMINOPHEN 500 MG TAB PO SCH ×2 (13:11→19:24)
[2021-10-27] MEDS: ACETAMINOPHEN 500 MG TAB PO SCH ×3 (00:06→12:00)
[2021-10-27] MEDS: LR 1,000 ML IV SCH ×2 (04:15→12:15)
--- NOTE | 2021-10-27 05:23 | OBDS ---
[facility] Obstetrical Discharge Sum. Obstetrical Discharge Summary Animal Attendant/Provider: LEÓN FELIX DO Date: Oct 27, 2021 Time: 03:52 : 2 Term: 2 Pre-term: 0 Abortions: 0 Livin VDRL: Non-Reactive Rh: Positive Rubella: Immune Labor uncomplicated induction of labor for prelabor rupture of membranes Delivery normal spontaneous vaginal Infant Sex: Male Infant Weight: grams (3890) Anesthesia: Regional Anesthesia A/P, Post Course List any complications Admission diagnosis: -39 weeks gestation - prelabor rupture of membranes Discharge diagnosis: - status post normal spontaneous vaginal delivery Condition at Discharge: Good Discharge Instructions: Home Activity: As tolerated, vaginal rest Diet: Resume pre-hospital Medications: at [place] Follow-up: 6 weeks [place] OB-RISK ENGINEER Other: Day of discharge exam: a&o x3 non labored breathing abd soft, nontender uterus firm at -2cm negative calf tenderness LEÓN FELIX DO Oct 27, 2021 03:54
[2021-10-27 06:01] VITALS: BP 116/72
[2021-10-27 06:55] LABS: HEMATOCRIT 29.4 % (36.0-47.0); HEMOGLOBIN 10.1 g/dl (12.0-15.5); MEAN CORPUSCULAR HEMOGLOBIN 29.7 pg (27.0-33.0); MEAN CORPUSCULAR HGB CONC 34.4 g/dl (32.0-36.5); MEAN CORPUSCULAR VOLUME 86.5 fl (80.0-96.0); PLATELET COUNT, AUTOMATED 179 10^3/uL (150-450); WHITE BLOOD COUNT 18.1 10^3/uL (4.0-10.0)
[2021-10-27] MEDS ORDERED: PRENATAL VITAMINS CHEWABLE TABLET PO SCH (09:00)
[2021-10-27] MEDS: PRENATAL VITAMINS CHEWABLE TABLET PO SCH (09:28)
[2021-10-27] MEDS ORDERED: ACETAMINOPHEN 500 MG TAB PO PRN (15:35)
[2021-10-27 17:53] VITALS: BP 129/78
[2021-10-28 05:55] VITALS: BP 148/80
[2021-10-28] MEDS: PRENATAL VITAMINS CHEWABLE TABLET PO SCH (09:00)
== END 2021-10-28 14:00 | disposition home or self-care (01) | DRG 807 ==
LOC: M LDO 11:57 → M LDI 13:28 → M OBS 10-26 14:23
PROVIDERS: ADMIT Obstetrics & Gynecology; ATTEND Obstetrics & Gynecology
PROC: 10E0XZZ Delivery of Products of Conception, External Approach (ICD-10-PCS; principal; 2021-10-26)
PROC: 0KQM0ZZ Repair Perineum Muscle, Open Approach (ICD-10-PCS; 2021-10-26)
DX: O42.12 Full-term premature rupture of membranes, onset of labor more than 24 hours following rupture (principal); Z37.0 Single live birth; Z3A.39 39 weeks gestation of pregnancy; O99.820 Streptococcus B carrier state complicating pregnancy; O70.1 Second degree perineal laceration during delivery; Z88.6 Allergy status to analgesic agent; Z88.8 Allergy status to other drugs, medicaments and biological substances